=== PATIENT | female | born 1935 | race Caucasian/White ===

== ENCOUNTER 2016-06-18 22:58 | Emergency (ER) | payer OTHER ==
[~2016-06-18] VITALS: Ht 165.1 cm; Wt 72.6 kg
[~2016-06-18 22:58] MED LIST: ALLOPURINOL 30300 M2 PO; AMARYL4 MG PO; CELEXA10 MG PO; CELEXA20 MG PO; CHLORTHALIDONE25 MG PO; COUMADIN 1MG TAB1 M1 PO; GABAPENTIN 100100 MG PO; HYDROCODONE-AP1 EAC6 PO; LEVOTHYROXIN0.088 MG PO; LOFIBRA54 MG PO; LOMOTIL TABLET1 EACH PO; LOPRESSOR25 PO; LOVAZA1000 MG PO; METFORMIN HCL1000 M1 PO; METFORMIN HCL1000 MG PO; NAPROSYN500 MG PO; NORVASC10 MG PO; PANTOPRAZOLE SO40 M1 PO; POTASSIUM20 PO; PRINIVIL40 MG PO; VITAMIN D 5050000 I1 PO; XANAX1 MG PO
[2016-06-18 23:28] LABS: ABSOLUTE NEUTROPHILS 8.8 thou/uL (1.4-8.2); BASOPHILS 0.2 % (0.0-2.0); EOSINOPHILS 0.6 % (0.0-3.0); HEMATOCRIT 35.3 % (37.0-47.0); HEMOGLOBIN 11.8 gm/dL (12.0-15.0); LYMPHOCYTES 12.2 % (24.0-44.0); MCH 29.4 pg (26.0-34.0); MCHC 33.4 % (28.0-37.0); MCV 88.2 fL (80.0-100.0); PLATELET COUNT 220 thou/uL (150-400); RDW 15.5 % (10.5-14.5); WBC 10.9 thou/uL (4.0-11.0)
[2016-06-18 23:34] LABS: CREATININE 1.2 mg/dL (0.6-1.3); MANUAL DIFF NO; POTASSIUM 3.8 mmol/L (3.5-5.1)
[2016-06-18] MEDS ORDERED: TRIAMCINOLONE A80 G2 (23:38)
[2016-06-18 23:39] LABS: ALBUMIN 3.2 g/dL (3.4-5.0); TOTAL BILIRUBIN 0.4 mg/dL (<0.1-1.0); TOTAL PROTEIN 7.7 g/dL (6.4-8.2)
[2016-06-18] MEDS ORDERED: MAGOX 400400 MG PO (23:45)
[2016-06-18] MEDS ORDERED: ARICEPT 5 MG TAB5 MG PO (23:46)
[2016-06-18] MEDS ORDERED: LOMOTIL TABLET1 EACH (23:48)
[2016-06-19 02:08] VITALS: BP 145/62
== END 2016-06-19 02:09 | disposition home or self-care (01) ==
LOC: ER 22:58
PROVIDERS: Physician Assistant
DX: F32.9 Major depressive disorder, single episode, unspecified (principal); R10.30 Lower abdominal pain, unspecified; E11.9 Type 2 diabetes mellitus without complications; E78.00 Pure hypercholesterolemia, unspecified; E03.9 Hypothyroidism, unspecified; I10 Essential (primary) hypertension; Z90.89 Acquired absence of other organs; Z88.8 Allergy status to other drugs, medicaments and biological substances

== ENCOUNTER 2016-09-25 10:28 | Inpatient (IN) | payer OTHER ==
[~2016-09-25] VITALS: Ht 162.6 cm; Wt 65.3 kg
--- NOTE | ~2016-09-25 | EKG ---
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
--- NOTE | ~2016-09-25 | H ---
[facility] [place] [address] HISTORY AND PHYSICAL Name: SEBAS VANEGAS Room #: 404-P [facility] IN M.R.#: [id number] Admission: 09/25/16 Attend Phys: Alan Smith MD Discharge: 09/27/16 Date of : 39 Report #: [id number] THIS REPORT FOR: //name// CC: Nelia Smith DATE OF SERVICE: 09/25/2016 CHIEF COMPLAINT: Generalized weakness and feeling depressed. HISTORY OF PRESENT ILLNESS: The patient is a 81-year-old female with history of severe depression, who comes to the Emergency Room with generalized weakness and lack of motivation. The patient states that she has been feeling depressed for last 2 years. The depression was exacerbated since June of this year, since the conflict with her daughter. The patient now lives with her . The patient is not suicidal, but she states that she is very depressed, and "she does not want to live." She has no suicide attempts, and no plan. The patient states that she is not taking her medications during the last few days. In the Emergency Room, her evaluation was unremarkable. Her physical examination is essentially normal. Basic metabolic profile as well as CBC also unremarkable. The patient has history of DVT, and she takes Coumadin for this. She has left Martinez cyst, and right lower extremity chronic nonocclusive clot. The patient denies any pain. She does not have shortness of breath. She denies heart palpitations. She has no blurry vision, headaches, or any other symptoms. PAST MEDICAL HISTORY: 1. Diabetes mellitus type 2, unclear control. 2. Hypertension. 3. Hypothyroidism. 4. Dyslipidemia. 5. Depression. 6. Right lower extremity deep venous thrombosis, diagnosed in 04/2016. CURRENT MEDICATIONS: Extensive list is reviewed and documented in the patient's chart. FAMILY HISTORY: Reviewed and not pertinent to the patient's current condition. SOCIAL HISTORY: The patient lives with her . She does not smoke cigarettes and does not drink alcohol. REVIEW OF SYSTEMS: As above in HPI section, all others negative. PHYSICAL EXAMINATION: [facility] [address] [place] [address] HISTORY AND PHYSICAL Name: SEBAS VANEGAS Room #: 404-P [facility] IN ..#: [id number] Admission: 09/25/16 Attend Phys: Alan Smith MD Discharge: 09/27/16 Date of : 39 Report #: [id number] GENERAL: The patient is healthy looking elderly female who is in no apparent distress. VITAL SIGNS: Her blood pressure is 135/55, heart rate is 54, respiration is 14, temperature is 97.8. HEENT: Pupils are equal. Eye movements are normal. The patient has anicteric sclerae. NECK: Supple. The patient has no thyromegaly. She has no JVD. Carotid bruits are not appreciated. RESPIRATORY: Chest moves symmetrically with breathing. Lungs are clear to auscultation bilaterally. CARDIOVASCULAR: The patient has regular rhythm and rate. She has no murmurs, gallops or rubs. GASTROINTESTINAL: Abdomen is soft, nondistended and nontender. Bowel sounds are present. The patient has no hepatomegaly or splenomegaly. NEUROLOGIC: The patient is alert and oriented x 3. Her examination is nonfocal. SKIN: The patient has no skin lesions. Skin is dry and warm. LABORATORY DATA: Basic metabolic profile is essentially normal except with glucose of 266. On CBC, the patient has mild anemia with hemoglobin of 11.5, hematocrit of 34.2, which is chronic. Platelets and white count are normal. MCV is normal. INR is 1.1. Chest x-ray is negative. Bilateral lower extremity venous ultrasound reveals right-sided DVT, and left-sided Martinez cyst. ASSESSMENT AND PLAN: 1. Severe depression, suicidal thoughts, no suicidal ideation and no plan. Psychiatrist will be consulted for further evaluation. Celexa, which the patient is supposed to be taking at home, will be continued unchanged. Psychiatrist consultation is very much appreciated. Currently, the patient has no acute medical conditions, and if recommended, the patient can be transferred to inpatient psychiatric facility for further treatment from medical standpoint. 2. Low energy level, generalized weakness and feeling withdrawn. Most likely due to severe depression. The patient also has questionable compliance to medications. We are checking TSH, to rule out out of control hypothyroidism. We will also check vitamin B12 levels. 3. Diabetes mellitus type 2, unclear control. The patient takes glimepiride and metformin at home, which will be resumed. 4. Elevated blood sugars will be treated with sliding scale insulin. We will check hemoglobin A1c to assess overall glycemic control. 5. Primary hypothyroidism. As noted, TSH will be checked and levothyroxine will be adjusted as necessary. 6. Right lower extremity deep venous thrombosis diagnosed in 04/2016. The patient's home medication list includes Coumadin, but INR is 1.1. We will treat the patient with Eliquis, and discontinue Coumadin. [facility] [address] [place] [address] HISTORY AND PHYSICAL Name: SEBAS VANEGAS Room #: 404-P [facility] IN [place].#: [id number] Admission: 09/25/16 Attend Phys: Alan Smith MD Discharge: 09/27/16 Date of : 39 Report #: [id number] 7. Deep venous thrombosis and gastrointestinal prophylaxis. As noted, the patient will be treated with Eliquis for deep venous thrombosis. She will be continued on Protonix, that she takes at home. <ELECTRONICALLY SIGNED> By: Alan Smith MD 10/01/16 1246 1549 1650 Alan Smith MD /nt
--- NOTE | ~2016-09-25 | D ---
[facility] [place] [address] [address] DISCHARGE SUMMARY Name: SEBAS VANEGAS Room #: 404-P [facility] IN M.R.#: [id number] Admission: 09/25/16 Attend Phys: Alan Smith MD Discharge: 09/27/16 Date of : 39 Report #: [id number] THIS REPORT FOR: //name// CC: Nelia Smith DATE OF SERVICE: 09/27/2016 HISTORY OF PRESENT ILLNESS: The patient is a 81-year-old female with history of depression, who came to the emergency room with generalized weakness. Please refer to admission H and P for details. In brief, her physical examination as well as laboratory data were in acceptable range, and her symptoms most likely were related to depression. HOSPITALIZATION COURSE: The patient was hospitalized at [facility]. The patient was not actively suicidal. Psychiatrist was consulted. Psychiatrist recommended transferring the patient to the inpatient psych for further treatment, but further evaluation revealed that the patient did not qualify for that. The patient was seen by physical therapist, and home health was recommended. The patient's hospital stay was uneventful, and she did remain medically stable. The patient's blood pressure has been low normal, so her home medications were reduced. Her TSH was normal, vitamin B12 in the low normal range, and her blood glucose levels remained stable. Currently, the patient's condition is acceptable, as documented in the patient's chart. DISCHARGE DIAGNOSES: 1. Depression, details as above. No suicidal ideations. The patient will be continued on Celexa, and close outpatient followup with her psychiatrist. 2. Hypertension, well controlled on low dose lisinopril and Norvasc. was discontinued. 3. Diabetes mellitus type 2, current hemoglobin A1c 7.1%. Low normal blood sugars. Glimepiride dose was reduced from 4 mg twice a day, to 4 mg once a day. 4. Hypothyroidism. We will replace. Normal TSH. 5. Right lower extremity deep venous thrombosis, diagnosed in April 2016. The patient was on Coumadin, that was recently discontinued, and she is followed with observation. 6. Dyslipidemia. DISCHARGE MEDICATIONS: Please refer to the medication reconciliation list in EMR. DISPOSITION: The patient is discharged home on home health. [address] [address] DISCHARGE SUMMARY Name: SEBAS VANEGAS Room #: 404-P [facility] IN .R.#: [id number] Admission: 09/25/16 Attend Phys: Alan Smith MD Discharge: 09/27/16 Date of : 39 Report #: [id number] FOLLOWUP PLAN: Follow up with the psychiatrist and primary care physician in 1-2 weeks. I spent more than 30 minutes to coordinate the patient's discharge from the hospital. <ELECTRONICALLY SIGNED> By: Alan Smith MD 10/01/16 1247 1153 1231 Alan Smith MD /tori
[~2016-09-25 10:28] MED LIST changes: +ARICEPT 5 MG TAB5 MG PO; +LOMOTIL TABLET1 EACH; +MAGOX 400400 MG PO; +TRIAMCINOLONE A80 G2
[2016-09-25 10:43] VITALS: BP 154/56
[2016-09-25 12:51] LABS: ABSOLUTE NEUTROPHILS 3.9 thou/uL (1.4-8.2); BASOPHILS 0.6 % (0.0-2.0); EOSINOPHILS 2.5 % (0.0-3.0); HEMATOCRIT 34.2 % (37.0-47.0); HEMOGLOBIN 11.5 gm/dL (12.0-15.0); MANUAL DIFF NO; MCH 29.9 pg (26.0-34.0); MCHC 33.8 g/dL (28.0-37.0); MCV 88.6 fL (80.0-100.0); MONOCYTES 8.2 % (1.0-8.0); PLATELET COUNT 228 thou/uL (150-400); POLYS 66.7 % (36.0-66.0); RBC 3.85 mil/uL (4.20-5.00); RDW 15.5 % (10.5-14.5); WBC 5.8 thou/uL (4.0-11.0)
[2016-09-25 13:03] LABS: INR 1.1; PROTIME 11.4 Seconds (9.3-11.4)
[2016-09-25 13:04] LABS: CALCIUM 8.9 mg/dL (8.5-10.1); CREATININE 1.1 mg/dL (0.6-1.0); POTASSIUM 3.7 mmol/L (3.5-5.1)
[2016-09-25 13:28] LABS: URINE BILIRUBIN NEGATIVE (Negative); URINE BLOOD NEGATIVE (Negative); URINE GLUCOSE-RANDOM* 2+ (Negative); URINE KETONES NEGATIVE (Negative); URINE NITRITE NEGATIVE (Negative); URINE PROTEIN (DIPSTICK) NEGATIVE (Negative); URINE SPECIFIC GRAVITY 1.015 (1.003-1.035); URINE UROBILINOGEN 0.2 E.U./dl (0.2-1.0)
[2016-09-25 13:39] LABS: URINE COLOR YELLOW
[2016-09-25 16:34] LABS: TSH 1.602 uIU/mL (0.358-3.740)
[2016-09-25 17:27] VITALS: BP 149/72
[2016-09-25 20:18] VITALS: BP 141/62
[2016-09-26] VITALS: BP 118/60
[2016-09-26 03:26] VITALS: BP 112/58
[2016-09-26 04:08] LABS: GLYCOHEMOGLOBIN (HGB A1C) 7.1 % (4.8-5.6)
[2016-09-26 08:00] VITALS: BP 98/47
[2016-09-26 15:52] VITALS: BP 148/60
[2016-09-26 19:10] VITALS: BP 123/56
[2016-09-27 03:15] VITALS: BP 125/50
[2016-09-27 07:51] VITALS: BP 151/58
[2016-09-27 08:59] VITALS: BP 115/61
[2016-09-27] MEDS ORDERED: LISINOPRIL5 MG PO (11:57)
[2016-09-27] MEDS ORDERED: AMARYL2 MG PO (11:57)
[2016-09-27 12:35] VITALS: BP 115/61
== END 2016-09-27 13:39 | disposition home health service (06) | DRG 881 ==
LOC: ER 10:28 → EROBS 13:12 → 4N 13:12
PROVIDERS: Emergency Medicine; Internal Medicine Endocrinology, Diabetes & Metabolism
DX: F32.9 Major depressive disorder, single episode, unspecified (principal); R53.1 Weakness; E11.9 Type 2 diabetes mellitus without complications; E78.5 Hyperlipidemia, unspecified; I10 Essential (primary) hypertension; E03.9 Hypothyroidism, unspecified; Z98.42 Cataract extraction status, left eye; Z98.41 Cataract extraction status, right eye; Z90.49 Acquired absence of other specified parts of digestive tract; Z86.718 Personal history of other venous thrombosis and embolism; Z79.899 Other long term (current) drug therapy
CPT/HCPCS: 10091

== ENCOUNTER → 2016-11-08 | Outpatient (CLI) | payer OTHER ==
[~2016-11-08] VITALS: Ht 154.9 cm; Wt 70.3 kg
[~2016-11-08] MED LIST changes: +AMARYL2 MG PO; +ATIVAN1 MG PO; +D3-5050000 UNIT PO; +HYDROXYZINE HCL PO; +LISINOPRIL5 MG PO; +MELATONIN5 M1 PO; +UBIQUINOL100 MG PO; +XIIDRA1 EACH OP
--- NOTE | ~2016-11-08 | S ---
[facility] [address] [place] [address] SURGICAL PATH RPT PROCEDURE Name: SEBAS RHODES Room #: AMY Ceja.Bria.#: [id number] Admission: 11/08/16 Date of : 39 Discharge: Report #: [id number] Path Case #: [id number] PATHOLOGY REPORT COLLECTION DATE: 11/08/2016 RECEIVED DATE: 11/09/2016 SUBMITTING PHYS: Dr. Rajat Stubbs OTHER PHYS: Dr. Nelia Valentino ADDENDUM REPORT (Order Date: 11/13/2016 13:05) ADDENDUM COMMENT: This addendum is issued to report a well controlled PAS-D fungal special stain. The stain is negative for any fungal elements. The originally rendered diagnosis remains unchanged. (IUV:mgr; d/t: 11/13/16) Professional services performed by [facility] at [facility] [address] [place] [address] Technical services performed by [facility] at [address] [place] [address], [address] [place] [address]. ELECTRONICALLY SIGNED BY: Shira Severino M.D. DATE/TIME:11/13/2016 14:51 SPECIMEN(S) RECEIVED: A.Bx of small bowel B.Bx of gastritis C.Bx of distal esophagus * * * * * * * * * * * * FINAL DIAGNOSIS: A. Small bowel mucosa, small bowel, endoscopic biopsy: - Mild active peptic duodenitis. - Negative for villous blunting. - Negative for dysplasia. B. Gastric mucosa, gastritis, endoscopic biopsy: - Moderate reactive gastropathy. - Negative for intestinal metaplasia or atrophy. - Negative for Helicobacter pylori. C. Squamous mucosa, distal esophagus, endoscopic biopsy: - Fragments of fibrinopurulent material, consistent with ulceration along with granulation tissue. - Focal squamous mucosa with moderate active esophagitis. [facility] [address] [place] [address] SURGICAL PATH RPT PROCEDURE Name: SEBAS RHODES Room #: REG [facility]#: [id number] Admission: 11/08/16 Date of : 39 Discharge: Report #: [id number] Path Case #: [id number] COMMENT: Helicobacter pylori immunohistochemical stain performed on block B1-negative. A PAS-D fungal special stain is ordered on block C and the results of this will be reported in an addendum to follow. (IUV:mgr; d/t: 11/12/16) PATHOLOGIST: Shira Severino M.D. REPORT ELECTRONICALLY SIGNED BY: Shira Severino M.D. DATE/TIME: 11/12/2016 17:07 * * * * * * * * * * * * GROSS PATHOLOGY: A. Received in formalin labeled "Sebas Rhodes, BX of small bowel," are 7 segments of mayo soft tissue measuring 2.4 x 0.2 x 0.2 cm in aggregate dimensions and ranging from 0.2 to 0.5 cm in maximum dimension. The specimen is submitted entirely in cassette A1. B. Received in formalin labeled "Romina, Sebas, BX of gastritis," are 5 segments of mayo soft tissue measuring 2.1 x 0.2 x 0.2 cm in aggregate dimensions and ranging from 0.2 to 0.8 cm in maximum dimension. The specimen is submitted entirely in cassette B1. C. Received in formalin labeled "Romina, Sebas, BX of distal esophagus," are 4 segments of mayo soft tissue measuring 1.1 x 0.2 x 0.2 cm in aggregate dimensions and ranging from 0.1 to 0.4 cm in maximum dimension. The specimen is submitted entirely in cassette C1. (TIFFANIE; 11/09/2016) CLINICAL HISTORY: Heartburn, dysphasia, diarrhea INITIAL CPT CODE(S): A; 65594 B; 80006, 68942 C; 63913, 11506 Professional services performed by [facility] [address], [place] [address] Technical services performed by [facility] at [address] [place] [address], [address] [address]. [facility] [address] [place] [id number] SURGICAL PATH RPT PROCEDURE Name: ROMINA,SEBAS Room #: REG JESSICA Evans#: [id number] Admission: 11/08/16 Date of : 39 Discharge: Report #: [id number] Path Case #: [id number] PHONE: [phone] DIRECTOR: Karl Siddiqui M.D. * * * END OF REPORT * * *
--- NOTE | ~2016-11-08 | P ---
[facility] [place] [address] PROCEDURE REPORT Name: SEBAS VANEGAS Room #: [facility] JESSICA Nathan#: [id number] Admission: 11/08/16 Attend Phys: Rajat Stubbs MD Discharge: Date of : 37 Report #: [id number] THIS REPORT FOR: //name// CC: Rajat Valentino MD BRIEF HISTORY: The patient is a 81-year-old woman with complaints of solid food dysphagia and also heartburn. In addition, she does have diabetes and complaints of diarrhea. There is a question of early satiety, which is difficult to distinguish from her dysphagia. PREOPERATIVE DIAGNOSES: Dysphagia, reflux and diarrhea. POSTOPERATIVE DIAGNOSES: 1. Severe grade D erosive esophagitis. 2. Mild esophageal ring, gastroesophageal junction. 3. Small hiatus hernia. 4. Diffuse gastritis with small amount of retained bile. MEDICATIONS: Deep sedation with propofol per anesthesia. SPECIMENS: 1. Small bowel biopsies, rule out celiac disease. 2. Biopsies of gastritis, rule out Helicobacter pylori. 3. Biopsy of distal esophagus, rule out Jimenez. ESTIMATED BLOOD LOSS: 3 mL. PROCEDURE: EGD with biopsy and Land dilation. FINDINGS: Prior to propofol sedation, the procedure of upper endoscopy and dilation was discussed with the patient as well as potential risks and its complications. She indicates she understands and desires to proceed. DESCRIPTION OF PROCEDURE: With the patient in the left lateral decubitus position, the Fuji video endoscope was inserted in the cervical esophagus under direct vision without difficulty. Examination of this organ through its entire length revealed normal esophageal mucosa in the proximal esophagus. As we advanced in the esophagus distally, long erosive columns extended down in the squamocolumnar junction. Several centimeters above the squamocolumnar junction was circumferentially involved with diffuse esophagitis with some exudate. No mass lesions were seen. No deep ulcers were seen, but she has a severe, grade D esophagitis. In addition, at the GE junction intermittently, a mild ring could be seen. A small hiatus hernia was noted as well. The mucosa in the hernia was normal. Scope was advanced in the stomach, which was examined on end views as well as retroflexed views. There was moderate erythema, mostly in the antrum of [address] [address] PROCEDURE REPORT Name: SEBAS VANEGAS Room #: REG [facility].#: [id number] Admission: 11/08/16 Attend Phys: Rajat Stubbs MD Discharge: Date of : 37 Report #: [id number] stomach. No ulcers were seen. A few scattered erosions were noted. No retained solids were seen in the stomach. There was a small amount of bile in the proximal stomach, which was aspirated away. Upon retroflexion, no mass lesions were seen. Small hiatus hernia was seen. Scope was advanced across the pylorus. The pylorus was normal. Duodenal bulb was normal and postbulbar sweep were inspected and noted to be within normal limits. At that point, the scope was slowly withdrawn and careful circumferential views were obtained. Small bowel mucosa was normal, but due to complaints of diarrhea and diabetes, biopsies were obtained to evaluate for celiac disease. Biopsies were obtained of the gastritis as well. In addition, we obtained mucosal biopsies in the distal esophagus to evaluate for Jimenez's mucosa. Scope was withdrawn. The patient tolerated the procedure well. Subsequently, she was dilated with passage of 50-[place] dilator. There was no resistance. CONDITION OF THE PATIENT UPON DISCHARGE: Following the procedure, the patient drowsy and arousable. She will be discharged to home when fully ambulatory. INSTRUCTIONS TO THE PATIENT AND FAMILY AT THE TIME OF DISCHARGE: The patient with findings as noted above. I suspect her major problem is poorly controlled reflux esophagitis and we will start her on omeprazole 40 mg daily. We will follow up on biopsies. We will make further recommendations after reviewing the biopsies. In addition, likely, we will have her return in about 12 weeks to reevaluate the esophagus in view of her severe esophagitis. The mucosa was so distorted for the esophagitis, it is difficult to fully exclude a Jimenez's esophagus or even a neoplastic process. Also, she is to return to see me as needed for evaluation due to her symptoms of dysphagia if they recur. She was advised to follow up with Dr. Nelia Valentino. Finally, in view of her diabetes, if she has symptoms of early satiety after control of her reflux symptoms, gastric empty studying may be helpful. In addition, if diarrhea continues to be a problem, then small bowel biopsies nondiagnostic, evaluation of her colon to evaluate for microscopic colitis may be a consideration as well. <ELECTRONICALLY SIGNED> By: Rajat Stubbs MD 11/09/16 0820 1018 1415 Rajat Stubbs MD /nt
== END | disposition home or self-care (01) ==
LOC: GI 08:34
DX: K22.10 Ulcer of esophagus without bleeding (principal); K22.2 Esophageal obstruction; K44.9 Diaphragmatic hernia without obstruction or gangrene; E11.9 Type 2 diabetes mellitus without complications; F32.9 Major depressive disorder, single episode, unspecified; F41.9 Anxiety disorder, unspecified; I10 Essential (primary) hypertension; E78.5 Hyperlipidemia, unspecified; G47.33 Obstructive sleep apnea (adult) (pediatric); Z90.49 Acquired absence of other specified parts of digestive tract; E03.9 Hypothyroidism, unspecified; F03.90 Unspecified dementia, unspecified severity, without behavioral disturbance, psychotic disturbance, mood disturbance, and anxiety
CPT/HCPCS: 62110; 62900

== ENCOUNTER → 2018-02-27 | Outpatient (CLI) | payer OTHER ==
[~2018-02-27] MED LIST changes: +ACIDOPHILUS1 EAC4 PO; +AMBIEN 5 MG TABL5 MG PO; +ELIQUIS5 MG PO; +KLOR-CON 1010 MEQ PO; +LISINOPRIL10 MG PO; +LOPERAMIDE 2 MG2 M1 PO; +METFORMIN HCL500 MG PO; +NORCO 5-325 TA1 EACH PO; +NYAMYC15 GM TOP; +ONDANSETRON HCL4 M2 PO; +PAXIL10 MG PO; +PROAIR HFA8.5 GM INH; +REMERON15 M2 PO; +SYNTHROID75 MCG PO
[2018-02-27 16:25] LABS: ABSOLUTE NEUTROPHILS 6.2 thou/uL (1.4-8.2); BASOPHILS 0.6 % (0.0-2.0); EOSINOPHILS 2.8 % (0.0-3.0); HEMATOCRIT 32.1 % (37.0-47.0); HEMOGLOBIN 10.3 gm/dL (12.0-15.0); LYMPHOCYTES 18.5 % (24.0-44.0); MCH 25.3 pg (26.0-34.0); MCHC 32.2 g/dL (28.0-37.0); MCV 78.4 fL (80.0-100.0); MONOCYTES 5.4 % (1.0-8.0); PLATELET COUNT 459 thou/uL (150-400); POLYS 72.7 % (36.0-66.0); RBC 4.09 mil/uL (4.20-5.00); RDW 18.7 % (10.5-14.5); WBC 8.6 thou/uL (4.0-11.0)
[2018-02-27 16:39] LABS: ALBUMIN 3.2 g/dL (3.4-5.0); ANION GAP 10 mmol/L (7-16); BUN 39 mg/dL (7-18); CALCIUM 10.1 mg/dL (8.5-10.1); CHLORIDE 106 mmol/L (98-107); CHOLESTEROL 162 mg/dL (<200); CO2 21 mmol/L (21-32); CREATININE 1.2 mg/dL (0.6-1.0); GLUCOSE 178 mg/dL (74-106); HDL CHOLESTEROL 36 mg/dL (>40); LDL CHOLESTEROL 70 mg/dL (<100); SGOT 24 U/L (15-37); SGPT 19 U/L (30-65); SODIUM 137 mmol/L (136-145); TC:HDL 4.5 Ratio (Not establshd); TOTAL BILIRUBIN 0.2 mg/dL (<0.1-1.0); TOTAL PROTEIN 8.8 g/dL (6.4-8.2); TRIGLYCERIDE 280 mg/dL (<150); URIC ACID* 3.3 mg/dL (2.6-7.2); VLDL 56 mg/dL (<40)
[2018-02-27 16:44] LABS: POTASSIUM 6.1 mmol/L (3.5-5.1)
[2018-02-28 01:08] LABS: GLYCOHEMOGLOBIN (HGB A1C) 6.5 % (4.8-5.6)
== END ==
LOC: SEN 08:54
PROVIDERS: Emergency Medicine
DX: Z09 Encounter for follow-up examination after completed treatment for conditions other than malignant neoplasm (principal); E11.9 Type 2 diabetes mellitus without complications; I10 Essential (primary) hypertension; E03.9 Hypothyroidism, unspecified; E78.5 Hyperlipidemia, unspecified

== ENCOUNTER → 2018-02-28 | Outpatient (CLI) | payer OTHER | LOC: SEN 14:12 | DX: E87.5 Hyperkalemia (principal) ==

== ENCOUNTER → 2018-03-03 | Outpatient (CLI) | payer OTHER ==
[2018-03-03 15:48] LABS: CALCIUM 9.6 mg/dL (8.5-10.1); CREATININE 1.1 mg/dL (0.6-1.0); POTASSIUM 5.1 mmol/L (3.5-5.1)
== END ==
LOC: SEN 14:50
PROVIDERS: Emergency Medicine
DX: E87.5 Hyperkalemia (principal)

== ENCOUNTER → 2018-03-06 | Outpatient (CLI) | payer OTHER ==
[2018-03-06 15:14] VITALS: BP 115/58
== END ==
LOC: SEN 09:17
DX: Z09 Encounter for follow-up examination after completed treatment for conditions other than malignant neoplasm (principal); G47.30 Sleep apnea, unspecified; E11.9 Type 2 diabetes mellitus without complications; I10 Essential (primary) hypertension; E03.9 Hypothyroidism, unspecified; E78.5 Hyperlipidemia, unspecified

== ENCOUNTER → 2018-05-01 | Outpatient (CLI) | payer OTHER | LOC: SEN 14:35 | DX: E11.9 Type 2 diabetes mellitus without complications (principal); I10 Essential (primary) hypertension; I82.491 Acute embolism and thrombosis of other specified deep vein of right lower extremity; Z79.4 Long term (current) use of insulin ==